=== PATIENT | male | born 1955 | race Caucasian/White ===

== ENCOUNTER 2022-11-22 01:43 | Emergency (ER) | payer OTHER ==
[~2022-11-22] VITALS: Ht 177.8 cm; Wt 70.8 kg
[2022-11-22 01:51] VITALS: BP_SYST 136
[2022-11-22] MEDS ORDERED: PRED20TA PO (03:58)
[2022-11-22] MEDS ORDERED: ALBMDI INH (03:58)
[2022-11-22] MEDS ORDERED: ROBAC PO (03:58)
[2022-11-22] MEDS ORDERED: PSEU120T57 PO (03:58)
[2022-11-22] MEDS ORDERED: LIDOCAINE PATCH 5% 1 EA TP ONE (04:00)
[2022-11-22] MEDS ORDERED: guaiFENesin ER 600 MG TAB PO ONE (04:00)
[2022-11-22] MEDS ORDERED: methocarbamoL 500 MG TABLET PO ONE (04:00)
[2022-11-22] MEDS ORDERED: KETOROLAC TROMETHAMINE 30 MG VIAL IM ONE (04:00)
[2022-11-22] MEDS ORDERED: guaiFENesin/DEXTROMETHORPHAN 1 EACH TAB.ER.12H PO ONE (04:00)
[2022-11-22] MEDS ORDERED: DICL20GE TP (04:03)
[2022-11-22] MEDS ORDERED: guaiFENesin 200 MG/10 ML UDC PO ONE (04:15)
[2022-11-22 04:31] VITALS: BP_SYST 111
== END 2022-11-22 04:31 | disposition home or self-care (01) ==
LOC: SED 01:43
DX: S32.020A Wedge compression fracture of second lumbar vertebra, initial encounter for closed fracture (principal); J20.9 Acute bronchitis, unspecified; Z79.899 Other long term (current) drug therapy; Z20.822 Contact with and (suspected) exposure to COVID-19; X58.XXXA Exposure to other specified factors, initial encounter; Y93.89 Activity, other specified; Y92.89 Other specified places as the place of occurrence of the external cause; Y99.8 Other external cause status
CPT/HCPCS: 99284; 71046; 87426; 36415; 72100; 96372; 87804 ×2; J1885